=== PATIENT | male | born 1995 | race Caucasian/White ===

== ENCOUNTER 2021-07-18 10:37 | Emergency (ER) | payer OTHER, SELFPAY ==
--- OUTSIDE RECORDS SUMMARY | 2021-07-18 10:41 | XMS REPORT | Continuity of Care Document ---
:1995 Author Organization [facility] Address [address] [place] [address] [address]. [address]es [address] [place] [address] Care Team Providers Name Role Phone Rashard MCCLAIN, K.H. Attending Clinician Horacio WETZEL Attending Clinician Unavailable Bhupendra Huizar Attending Clinician Payers Payer Name Policy Type Policy Number Effective Date Expiration Date S fauzia [employer]ERCIAL [id number] 2015 NON-CONTRACT 00:00:00 GENERIC Problems Condition Condition Condition Status Onset Resolution Last Treating Co mments Source Name Details Category Date Date Treatment Clinician Date No known No known Disease Unive rs active active ity of problems problems [facility] Allergies, Adverse Reactions, Alerts Allergy Allergy Status Severity Reaction(s) Onset Inactive Treating Comm ents Source Name Type Date Date Clinician NO KNOWN Drug Active Univers ALLERGIE Class ity of [facility] Social History Social Habit Start Date Stop Date Quantity Comments Source Sex Assigned At [facility] Exposure to Not sure [facility] SARS-CoV-2 (event) Medica l Branch Tobacco use and 2020-04-19 2020-04-19 Former user [facility] exposure 00:00:00 00:00:00 [facility] Smoking Status Start Date Stop Date Source Former smoker 2020-04-19 00:00:00 2020-04-19 00:00:00 [facility] Unknown if ever smoked [facility] Medications Ordered Filled Start Stop Current Ordering Indication Dosage Frequency Signature Comments Components Source Medication Medication Date Date Medication? Clinician (SIG) Name Name aspirin 325 2019-06 Yes 325mg Take 325 U nivers mg tablet 0-29 mg by ity of 16:04: mouth [place] 30 daily. Medical Branch aspirin 325 2019-06 Yes 325mg Take 325 U nivers mg tablet 0-29 mg by ity of 16:04: mouth [place] 30 daily. Medical Branch aspirin 325 2019-06 Yes 325mg Take 325 U nivers mg tablet 0-29 mg by ity of 16:04: mouth [place] 30 daily. Medical Branch acetaminoph 2019-06- No Take by U nivers en 0-29 10-29 mouth ity of (TYLENOL) 16:04[place] 00[place]00 [place] 6 [place] 325 mg 23 :00 (six) Medical tablet hours as Branch needed. acetaminoph 2019-06- No Take by U nivers en 0-29 10-29 mouth ity of (TYLENOL) 16:04: 00:00 [place] 6 [place] 325 mg 23 :00 (six) Medical tablet hours as Branch needed. acetaminoph 2019-06- No Take by U nivers en 0-29 10-29 mouth ity of (TYLENOL) 16:04: 00:00 [place] 6 [place] 325 mg 23 :00 (six) Medical tablet hours as Branch needed. buprenorphi 2019-[address] 8 mg Univers ne-naloxone 0-29 under the ity of (SUBOXONE) 16:03: tongue 3 [place] as 8-2 mg 40 (three) Medical sublingual times Branch film daily. buprenorphi 2019-[address] 8 mg Univers ne-naloxone 0-29 under the ity of (SUBOXONE) 16:03: tongue 3 [place] 8-2 mg 40 (three) Medical sublingual times Branch film daily. buprenorphi 2019-[address] 8 mg Univers ne-naloxone 0-29 under the ity of (SUBOXONE) 16:03: tongue 3 [place] 8-2 mg 40 (three) Medical sublingual times Branch film daily. acetaminoph Yes Take by Un brandee en 8-25 mouth ity of (TYLENOL) 00:46: every 6 [place] 325 mg 07 (six) Medical tablet hours as Branch needed. ibuprofen Yes 800mg Take 1 Tab U nivers (MOTRIN) 8-24 by mouth 3 ity o f 800 mg 00:00: (three) [place] tablet 00 times Medical daily with Branch meals. traMADOL Yes 50mg Take 1 Tab Uni vers (ULTRAM) 50 8-24 by mouth ity of mg tablet 00:00: every 6 [place] 00 (six) Medical hours as Branch needed for Pain (scale 4-6). ibuprofen 2020- No 800mg Take 1 Tab Univers (MOTRIN) 8- 10-29 by mouth 3 ity of 800 mg 00:00: 00:00 (three) [place] tablet 00 :00 times Medical daily with Branch meals. traMADOL 2020- No 50mg Take 1 Tab Un brandee (ULTRAM) 50 8- 10- by mouth ity of mg tablet 00:00: 00:00 every 6 [place] 00 :00 (six) Medical hours as Branch needed for Pain (scale 4-6). ibuprofen 2020- No 800mg Take 1 Tab Univers (MOTRIN) 8- 10- by mouth 3 ity of 800 mg 00:00: 00:00 (three) [place] tablet 00 :00 times Medical daily with Branch meals. traMADOL 2020- No 50mg Take 1 Tab Un brandee (ULTRAM) 50 8- 10- by mouth ity of mg tablet 00:00: 00:00 every 6 [place] 00 :00 (six) Medical hours as Branch needed for Pain (scale 4-6). ibuprofen 2020- No 800mg Take 1 Tab Univers (MOTRIN) 8- 10- by mouth 3 ity of 800 mg 00:00: 00:00 (three) [place] tablet 00 :00 times Medical daily with Branch meals. traMADOL 2019- No 50mg Take 1 Tab Un brandee (ULTRAM) 50 8- 10- by mouth ity of mg tablet 00:00: 00:00 every 6 [place] 00 :00 (six) Medical hours as Branch needed for Pain (scale 4-6). Vital Signs Vital Name Observation Time Observation Value Comments Source Systolic blood 2020-04-19 16:05:00 119 mm[Hg] Univer sity of pressure [facility] [place] [facility] Diastolic blood 2020-04-19 16:05:00 82 mm[Hg] Unive rsity [facility] Heart rate 2020-04-19 15:58:00 89 /min [facility] Respiratory rate 2020-04-19 15:58:00 19 /min [facility] height 2020-04-19 15:58:00 182.9 cm [facility] Body weight 2020-04-19 15:58:00 84.641 kg Universi ty of [facility] [place] [facility] BMI 2020-04-19 15:58:00 25.31 kg/m2 Universi ty of [facility] [place] [facility] Oxygen saturation in 2020-04-19 15:58:00 100 /min [facility] Arterial blood by [facility] Pulse oximetry Branch Systolic blood 2020-04-17 01:57:00 135 mm[Hg] Univer sity of pressure [facility] [place] [facility] Diastolic blood 2020-04-17 01:57:00 84 mm[Hg] Unive rsity of [facility] Heart rate 2020-04-17 01:57:00 76 /min Universi ty of [facility] Body temperature 2020-04-17 01:57:00 36.78 Karyn Univ ersity of [facility] Respiratory rate 2020-04-17 01:57:00 18 /min Univ ersity of [facility] [place] [facility] Body weight 2020-04-17 01:57:00 81.647 kg Universi ty of [facility] [place] [facility] BMI 2020-04-17 01:57:00 24.41 kg/m2 Universi ty of [facility] Procedures Procedure Date / Time Performed Performing Clinician [facility] e NOTICE OF PRIVACY 2020-04-17 01:50:02 [facility] Branch CONSENT/REFUSAL FOR 2020-04-17 01:49:07 [facility] AND Name Medical Branch TREATMENT Encounters Start End Encounter Admission Attending Care Care Encounter Source Date/Time Date/Time Type Type Clinicians Facility Department ID 2020-04-27 2020-04-27 Outpatient [facility] [id number] Univers 11:00:00 11:00:00 ity of [facility] [place] [facility] 2020-04-27 2020-04-27 Outpatient R [facility] [id number] Univers 11:00:00 11:00:00 ity of [facility] 2020-04-19 2020-04-19 Outpatient [facility] [id number] Univers 12:15:00 12:15:00 [id number] ity [facility] 2020-04-19 2020-04-19 Office Rashard [facility] [id number] Univers 10:22:53 11:52:35 Visit Denita Jones [id number] ity [facility] [id number] [facility] [id number] Il dical nal 059 Branch [facility] 2020-04-19 2020-04-19 Outpatient R RASHARD [facility] [id number] Univers 10:30:00 10:30:00 SENDIL ity [facility] 2020-04-16 2020-04-16 Emergency Andrew [facility] [id number] Univers 20:59:00 22:20:00 Emily Jones [id number] i ty [facility] [id number] [facility] [id number] [facility] 084 Branch 2020-04-16 2020-04-16 Emergency X [facility] ERT [id number] Univers 20:44:00 20:44:00 ity [facility] Results This patient has no known results.
--- NOTE | 2021-07-18 14:31 | RAD REPORT ---
EXAM DESCRIPTION: USExtrem Venous W Compress Bil07/18/2021 2:18 pm CLINICAL HISTORY: Leg swelling COMPARISON: none FINDINGS: The common femoral, superficial femoral, popliteal and posterior tibial veins bilaterally are compressible and demonstrate augmentation. Doppler demonstrates good flow. IMPRESSION: No evidence of deep venous thrombosis involving either lower extremity.
--- NOTE | 2021-07-18 14:34 | RAD REPORT ---
EXAM DESCRIPTION: US - UPPER EXTREMITY VENOUS UNILATE - 07/18/2021 2:20 pm CLINICAL HISTORY: Left arm pain COMPARISON: None. FINDINGS: Left internal jugular vein, left subclavian vein, left axillary vein, left brachial vein, left cephalic and left basilic, veins demonstrate phasic signal. The veins are compressible. Doppler demonstrates good flow. . IMPRESSION: No sonographic evidence of thrombus involving the left upper extremity veins.
--- NOTE | 2021-07-18 15:16 | EDPHYS ---
Physician Documentation [facility] Name: Larry Donato Age: 26 yrs Sex: Male : 1995 Arrival Date: 07/18/2021 Time: 10:40 Bed 10 Private MD: ED Physician Laci Rosenbaum HPI: 07/18 12:45 This 26 yrs old Male presents to ER via Ambulatory with complaints of possible blood cp clot. 12:45 The patient presents with pain. cp 12:45 The complaints affect the left lower leg behind knee and intermittent right lower leg. cp Context: resulted from an unknown cause, the patient can fully bear weight, the patient is able to ambulate, without difficulty. Onset: The symptoms/episode began/occurred 4 month(s) ago. Associated signs and symptoms: Pertinent positives: calf tenderness, left arm pain. Patient also c/o that left hand seems to become pale and discolored with increased activity, intermittent numbness. Historical: - Allergies: 11:08 No Known Allergies; ic1 - Immunization history:: Adult Immunizations up to date. - Social history:: Smoking status: Patient/guardian denies using tobacco, Stopped _ months ago 1. ROS: 12:50 MS/extremity: Positive for pain, tenderness, of the left arm, right leg and left leg, cp Negative for injury or acute deformity, decreased range of motion, paresthesias. 12:50 Constitutional: Negative for body aches, chills, fever, poor PO intake. cp 12:50 Cardiovascular: Negative for chest pain. 12:50 Respiratory: Negative for cough, shortness of breath, wheezing. 12:50 Abdomen/GI: Negative for abdominal pain, nausea, vomiting, and diarrhea. Exam: 12:55 Constitutional: The patient appears in no acute distress, alert, awake, cp non-diaphoretic, non-toxic, well developed, well nourished. 12:55 Head/Face: Normocephalic, atraumatic. cp 12:55 Eyes: Periorbital structures: appear normal, Conjunctiva: normal, no exudate, no injection, Sclera: no appreciated abnormality, Lids and lashes: appear normal, bilaterally. 12:55 ENT: External ear(s): are unremarkable, Nose: is normal, Mouth: Lips: moist, Oral mucosa: moist, Posterior pharynx: Airway: no evidence of obstruction, patent. 12:55 Neck: ROM/movement: is normal, is supple, without pain, no range of motions limitations. 12:55 Chest/axilla: Inspection: normal. 12:55 Cardiovascular: Rate: normal, Rhythm: regular, Heart sounds: murmur, not appreciated, Edema: is not appreciated, JVD: is not appreciated. 12:55 Respiratory: the patient does not display signs of respiratory distress, Respirations: normal, Breath sounds: are clear throughout, no decreased breath sounds, no stridor, no wheezing. 12:55 Abdomen/GI: Exam negative for discomfort, distension, guarding, Inspection: abdomen appears normal. 12:55 Back: pain, is absent, ROM is normal. 12:55 Musculoskeletal/extremity: Exam is negative for decreased range of motion, deformity, ecchymosis, edema, injury, Pulses: noted to be 2+ in the right radial artery, right dorsalis pedis artery, left radial artery and left dorsalis pedis artery, DVT Exam: tenderness, that is mild, of the left leg, of the left calf and left popliteal area. 12:55 Skin: cellulitis, is not appreciated, no rash present. Vital Signs: 11:06 BP 116 / 68; Pulse 97; Resp 16; Temp 98.7; Pulse Ox 99% on R/A; ic1 15:23 BP 121 / 75; Pulse 59; Resp 18; Pulse Ox 99% on R/A; ic1 MDM: 12:27 Patient medically screened. cp 14:00 Differential diagnosis: DVT, thoracic outlet syndrome, peripheral neuropathy. cp 15:15 Data reviewed: vital signs, nurses notes, radiologic studies, ultrasound. cp 15:15 Counseling: I had a detailed discussion with the patient and/or guardian regarding: the cp historical points, exam findings, and any diagnostic results supporting the discharge/admit diagnosis, radiology results, the need for outpatient follow up, for definitive care, a orthopedic surgeon, to return to the emergency department if symptoms worsen or persist or if there are any questions or concerns that arise at home. ED course: VSS. Discussed negative US results for DVT and recommendation to f/u with ortho for evaluation. 07/18 12:44 Order name: UPPER EXTREMITY VENOUS UNILATE; Complete Time: 14:56 EDMS 07/18 12:47 Order name: US Extremity Venous W Compression [place]; Complete Time: 14:56 cp 07/18 14:57 Interpretation: Report reviewed. cp Administered Medications: No medications were administered Disposition: 15:30 Chart complete. cp 17:33 Co-signature as Attending Physician, Laci Rosenbaum MD I agree with the assessment and kdr plan of care. Disposition Summary: 07/18/21 15:15 Discharge Ordered Location: Home cp Problem: new cp Symptoms: are unchanged cp Condition: Stable cp Diagnosis - Pain in arm, unspecified cp - Pain in leg, unspecified cp Followup: cp - With: Andrews Hennessy MD - When: 1 week - Reason: Recheck today's complaints Discharge Instructions: - Discharge Summary Sheet cp - Musculoskeletal Pain cp Forms: - Medication Reconciliation Form cp - Thank You Letter cp - Antibiotic Education cp - Prescription Opioid Use cp Prescriptions: - Ibuprofen 800 mg Oral Tablet - take 1 tablet by ORAL route every 8 hours As needed take with food; 30 tablet; cp Refills: 0, Product Selection Permitted Signatures: Dispatcher [employer] EDMS Laci Rosenbaum MD MD kdr Sunny Finley, IBRAHIMA PA cp Janette Kiran, RN RN ic1 Corrections: (The following items were deleted from the chart) 12:44 12:37 Extremity Venous Uni Ltd+[email or web address].RAD.[email or web address] ordered. EDMS EDMS 12:51 12:37 Extremity Venous Uni Ltd+[email or web address].RAD.BRZ ordered. EDMS EDMS
--- NOTE | 2021-07-18 15:16 | ER ---
Nurse's Notes [facility] Name: Larry Donato Age: 26 yrs Sex: Male : 1995 Arrival Date: 07/18/2021 Time: 10:40 Bed 10 Private MD: Diagnosis: Pain in arm, unspecified;Pain in leg, unspecified Presentation: 07/18 11:06 Chief complaint: Patient states: Pt c/o R calf pain and L arm pain with numbness and ic1 tingling x 4 months. "I feel like I almost pulled my hamstring". Denies recent trauma. Coronavirus screen: Vaccine status: Patient reports being unvaccinated. Ebola Screen: No symptoms or risks identified at this time. Initial Sepsis Screen: Does the patient meet any 2 criteria? No. Patient's initial sepsis screen is negative. Does the patient have a suspected source of infection? No. Patient's initial sepsis screen is negative. Risk Assessment: Do you want to hurt yourself or someone else? Patient reports no desire to harm self or others. Onset of symptoms is unknown. 11:06 Method Of Arrival: Ambulatory ic1 11:06 Acuity: CLAIR 4 ic1 Triage Assessment: 11:08 General: Appears in no apparent distress. Behavior is calm, cooperative. Pain: ic1 Complains of pain in right calf. Historical: - Allergies: 11:08 No Known Allergies; ic1 - Immunization history:: Adult Immunizations up to date. - Social history:: Smoking status: Patient/guardian denies using tobacco, Stopped _ months ago 1. Screenin:39 Abuse screen: Denies threats or abuse. Denies injuries from another. Nutritional ic1 screening: No deficits noted. Tuberculosis screening: No symptoms or risk factors identified. Fall Risk None identified. Assessment: 13:39 Reassessment: Patient appears in no apparent distress at this time. Patient and/or ic1 family updated on plan of care and expected duration. Pain level reassessed. Patient is alert, oriented x 3, equal unlabored respirations, skin warm/dry/pink. Vital Signs: 11:06 BP 116 / 68; Pulse 97; Resp 16; Temp 98.7; Pulse Ox 99% on R/A; ic1 15:23 BP 121 / 75; Pulse 59; Resp 18; Pulse Ox 99% on R/A; ic1 ED Course: 10:40 Patient arrived in ED. am2 11:08 Triage completed. ic1 11:08 Arm band placed on left wrist. ic1 12:19 Sunny Finley PA is PHCP. cp 12:19 Laci Rosenbaum MD is Attending Physician. cp 13:39 Patient has correct armband on for positive identification. ic1 14:18 UPPER EXTREMITY VENOUS UNILATE In Process Unspecified. EDMS 14:18 US Extremity Venous W Compression [place] In Process Unspecified. EDMS 15:15 Andrews Hennessy MD is Referral Physician. cp Administered Medications: No medications were administered Outcome: 15:15 Discharge ordered by MD. cp 15:20 Discharged to home ambulatory. ic1 15:20 Condition: stable 15:20 Discharge instructions given to patient, Instructed on discharge instructions, follow up and referral plans. Demonstrated understanding of instructions, follow-up care, medications, Prescriptions given X 1. 15:24 Patient left the ED. ic1 Signatures: Dispatcher [employer] EDMS Sunny Finley PA PA cp Gregoria Spring am2 Janette Kiran, RN RN ic1
[2021-07-18 15:29] VITALS: TEMP 98.7; O2SAT 99
[2021-07-18 15:30] VITALS: BP 121/75
== END 2021-07-18 15:24 | disposition home or self-care (01) ==
LOC: ER 10:37
DX: M79.662 Pain in left lower leg (principal); M79.661 Pain in right lower leg; M79.602 Pain in left arm
CPT/HCPCS: 93970; 93971; 99283

== ENCOUNTER 2021-08-22 21:04 | Emergency (ER) | payer SELFPAY ==
--- OUTSIDE RECORDS SUMMARY | 2021-08-22 21:08 | XMS REPORT | Continuity of Care Document ---
:[address] [facility] t Address [address] [place] [address] Dr. Montes De [address] [place] [address] Care Team Providers Name Role Phone Rashard MCCLAIN, K.H. Attending Clinician Horacio WETZEL Attending Clinician Unavailable Bhupendra Huizar Attending Clinician Payers Payer Name Policy Type Policy Number Effective Date Expiration Date S Global Weather [id number] 2015 NON-CONTRACT 00:00:00 GENERIC Problems Condition Condition Condition Status Onset Resolution Last Treating Co mments Source Name Details Category Date Date Treatment Clinician Date No known No known Disease Unive rs active active ity of problems problems [facility] Allergies, Adverse Reactions, Alerts Allergy Allergy Status Severity Reaction(s) Onset Inactive Treating Comm ents Source Name Type Date Date Clinician NO KNOWN Drug Active Univers ALLERGIE Class ity of [facility] Social History Social Habit Start Date Stop Date Quantity Comments Source Sex Assigned At [facility] Exposure to Not sure [facility] SARS-CoV-2 (event) Medica l Branch Tobacco use and 2020-04-19 2020-04-19 Former user [facility] exposure 00:00:00 00:00:00 [facility] Smoking Status Start Date Stop Date Source Former smoker 2020-04-19 00:00:00 2020-04-19 00:00:00 [facility] Unknown if ever smoked [facility] Medications Ordered Filled Start Stop Current Ordering [...] mouth [place] 30 daily. Medical Branch acetaminoph 2019-06 2020- No Take by U nivers en 0-29 [...] No 800mg Take 1 Tab Univers (MOTRIN) 804-19 by mouth 3 ity of 800 mg 00:00: 00:00 (three) [place] tablet 00 :00 times Medical daily with Branch meals. traMADOL 2020- No 50mg Take 1 Tab Un brandee (ULTRAM) 50 804-19 by mouth ity of mg tablet 00:00: 00:00 [place] 6 [place] 00 [place] (six) Medical hours as Branch needed for Pain (scale 4-6). ibuprofen 2020- No 800mg Take 1 Tab Univers (MOTRIN) 02-12 by mouth 3 ity of 800 mg 00:00: 00:00 (three) [place] tablet 00 :00 times Medical daily with Branch meals. traMADOL 2020- No 50mg Take 1 Tab Un brandee (ULTRAM) 50 02-12 by mouth ity of mg tablet 00:00: 00:00 [place] (six) Medical hours as Branch needed for Pain (scale 4-6). ibuprofen 2020- No 800mg Take 1 Tab Univers (MOTRIN) 02-12 by mouth 3 ity of 800 mg 00:00: 00:00 (three) [place] tablet 00 :00 times Medical daily with Branch meals. traMADOL 2019- No 50mg Take 1 Tab Un brandee (ULTRAM) 50 02-12 by mouth ity of mg tablet 00:00: 00:00 [place] 6 [place] (six) Medical hours as Branch needed for Pain (scale 4-6). Vital Signs Vital Name Observation Time Observation Value Comments Source Systolic blood 2020-04-19 16:05:00 119 mm[Hg] Univer sity of pressure [facility] Diastolic blood 2020-04-19 16:05:00 82 mm[Hg] Unive rsity of [facility] Heart rate 2020-04-19 15:58:00 89 [facility] Respiratory rate 2020-04-19 15:58:00 19 /min Univ ersity of [facility] Body height 2020-04-19 15:58:00 182.9 cm Universi ty of [facility] Body weight 2020-04-19 15:58:00 84.641 kg Universi ty of [facility] BMI 2020-04-19 15:58:00 25.31 kg/m2 Universi ty [facility] Oxygen saturation in 2020-04-19 15:58:00 100 /min [facility] Arterial blood by [facility] Pulse oximetry Branch Systolic blood 2020-04-17 01:57:00 135 mm[Hg] Univer sity of pressure [facility] Diastolic blood 2020-04-17 01:57:00 84 mm[Hg] Unive rsity of pressure [facility] Heart rate 2020-04-17 01:57:00 76 /min Universi ty of [facility] Body temperature 2020-04-17 01:57:00 36.78 K[facility] 2020-04-17 01:57:00 18 /min [facility] Body weight 2020-04-17 01:57:00 81.647 kg Universi ty [facility] BMI 2020-04-17 01:57:00 24.41 kg/m2 Universi ty [facility] Procedures Procedure Date / Time Performed Performing Clinician Sour e NOTICE OF PRIVACY 2020-04-17 01:50:02 Doctor Unassigned, [facility] Branch CONSENT/REFUSAL FOR 2020-04-17 01:49:07 Doctor Unassigned, No [facility] AND Name Medical Branch TREATMENT Encounters Start End Encounter Admission Attending Care Care Encounter Source Date/Time Date/Time Type Type Clinicians Facility Department ID 2020-04-27 2020-04-27 Outpatient [facility] [id number] Univers 11:00:00 11:00:00 ity of [facility] 2020-04-27 2020-04-27 Outpatient R [facility] [id number] Univers 11:00:00 11:00:00 ity of [facility] 2020-04-19 2020-04-19 Outpatient [facility] [id number] Univers 12:15:00 12:15:00 [id number] [facility] 2020-04-19 2020-04-19 Office Rashard [facility] [id number] Univers 10:22:53 11:52:35 Visit Denita GavinOnel Jones [id number] ity [facility] [id number] [facility] [id number] Mn dical nal 059 [facility] 2020-04-19 2020-04-19 Outpatient R RASHARD, [facility] [id number] Univers 10:30:00 10:30:00 SENDIL ity [facility] 2020-04-16 2020-04-[address] [facility] [id number] Univers 20:59:00 22:20:00 Emily Connorton [id number] i ty [facility] [id number] Yael monson [facility] [id number] [facility] 084 [place] 2020-04-16 2020-04-16 Emergency X [facility] ERT [id number] Univers 20:44:00 20:44:00 [facility] Results Test Description Test Time Test Comments Results Result Comments Source CULTURE, URINE 2021-07-07 SPECIMEN NUMBER: 08:38:50 [id number] CULTURE, URINE SPECIMEN NUMBER: [id number] SPECIMEN COMMENT: URINE SOURCE: URINE REPORT STATUS: FINAL FINAL REPORT: 07/07/2021 <10,000 CFU/ML UROGENITAL CHANCE PRESENT NO COMMON PATHOGENS UNLESS OTHERWISE INDICATED, ALL TESTING PERFORMED [facility] [address] [place] [address] MACHINE BOBBIN WINDER: MALCOLM GOMEZ M.D. CLIA NUMBER [id number] [place]. [id number]
[2021-08-22 22:46] LABS: Absolute Lymphocytes (CBC) 1.6 K/uL (0.7-4.9); Hematocrit 36.7 % (39.6-49.0); Lymphocytes % 33.4 % (15.3-44.8); MPV 7.7 fL (7.6-11.3); RBC Red Blood Cell Count 4.13 M/uL (4.33-5.43)
[2021-08-22 22:53] LABS: Protime INR 1.07
[2021-08-22 23:08] LABS: ALT/SGPT 16 U/L (12-78); AST/SGOT 10 U/L (15-37); Alkaline Phosphatase 73 U/L (45-117); BUN Blood Urea Nitrogen 14 mg/dL (7-18); Bicarbonate 30 mmol/L (21-32); Bilirubin Direct 0.1 mg/dL (0-0.2); Bilirubin Total 0.5 mg/dL (0.2-1.0); Glucose Level 95 mg/dL (74-106); Magnesium 2.2 mg/dL (1.8-2.4); NT PRO-BNP 45 pg/mL (<125); Potassium 3.9 mmol/L (3.5-5.1); Protein, Total 7.2 g/dL (6.4-8.2); Sodium Level 140 mmol/L (136-145)
[2021-08-22 23:09] LABS: Troponin High Sensitivity < 3.00 pg/mL (<58.9)
--- NOTE | 2021-08-23 01:28 | EDPHYS ---
Physician Documentation [facility] Name: Larry Donato Age: 26 yrs Sex: Male : 1995 Arrival Date: 08/22/2021 Time: 21:10 Bed 11 Private MD: ED Physician Claudine Malone HPI: 08/22 23:30 This 26 yrs old Male presents to ER via Ambulatory with complaints of Itching, Chest cp Tightness. Historical: - Allergies: 21:20 No Known Allergies; lg3 - Home Meds: 21:20 suboxone 8mg every 8 hours [Active]; lg3 - PMHx: 21:20 None; lg3 - PSHx: 21:20 bilateral hip; lg3 - Immunization history:: Adult Immunizations up to date, Client reports having NOT received the Covid vaccine. - Social history:: Smoking status: Patient/guardian denies using tobacco, Patient/guardian denies using alcohol, street drugs, the patient reports quitting approximately 1 years ago. ROS: 23:35 Constitutional: Negative for body aches, chills, fever, poor PO intake. cp 23:35 Cardiovascular: Positive for chest pain, Negative for edema, palpitations. cp 23:35 Respiratory: Negative for cough, shortness of breath, wheezing. 23:35 Abdomen/GI: Negative for abdominal pain, nausea, vomiting, and diarrhea. cp 23:35 Eyes: Negative for injury, pain, redness, and discharge. cp 23:35 Neck: Negative for pain with movement, pain at rest, stiffness. 23:35 Back: Negative for pain at rest, pain with movement. 23:35 Skin: Positive for of the left upper back, itching. 23:35 Neuro: Negative for altered mental status, headache, weakness. 23:35 All other systems are negative. Exam: 22:10 ECG was reviewed by the Attending Physician. cp 23:50 Constitutional: The patient appears in no acute distress, alert, awake, comfortable, cp non-diaphoretic, non-toxic, well developed, well nourished. 23:50 Head/Face: Normocephalic, atraumatic. cp 23:50 Eyes: Periorbital structures: appear normal, Pupils: equal, round, and reactive to light and accomodation, Extraocular movements: intact throughout, Conjunctiva: normal, no exudate, no injection, Sclera: no appreciated abnormality, Lids and lashes: appear normal, bilaterally. 23:50 ENT: External ear(s): are unremarkable, Nose: is normal, Mouth: Lips: moist, Oral mucosa: pink and intact, moist, Posterior pharynx: Airway: no evidence of obstruction, patent. 23:50 Neck: ROM/movement: is normal, is supple, without pain, no range of motions limitations, no nuchal rigidity. 23:50 Chest/axilla: Inspection: normal, Palpation: is normal, no crepitus, no tenderness. 23:50 Cardiovascular: Rate: normal, Rhythm: regular, Edema: is not appreciated, JVD: is not appreciated. 23:50 Respiratory: the patient does not display signs of respiratory distress, Respirations: normal, no use of accessory muscles, no retractions, labored breathing, is not present, Breath sounds: are clear throughout, no decreased breath sounds, no stridor, no wheezing. 23:50 Abdomen/GI: Inspection: abdomen appears normal, Palpation: abdomen is soft and non-tender, in all quadrants. 23:50 Back: pain, is absent, ROM is normal. 23:50 Skin: cellulitis, is not appreciated, no rash present. 23:50 Neuro: Orientation: to person, place \T\ time. Mentation: is normal, Motor: moves all fours, strength is normal, Sensation: no obvious gross deficits. Vital Signs: 21:13 BP 135 / 93; Pulse 69; Resp 18 S; Temp 98.6(TE); Pulse Ox 99% on R/A; Weight 81.65 kg lg3 (R); Height 6 ft. (182.88 cm) (R); Pain 0/10; 23:10 BP 136 / 88; Pulse 68; Resp 17; Pulse Ox 100% on R/A; st1 23:55 BP 131 / 97 RA; Pulse 67; Resp 16; Pulse Ox 100% on R/A; st1 23:55 BP 125 / 77 LA; Pulse 61; Resp 17; Pulse Ox 100% on R/A; st1 08/23 01:03 BP 130 / 75; Pulse 60; Resp 16; Pulse Ox 100% on R/A; st1 08/22 21:13 Body Mass Index 24.41 (81.65 kg, 182.88 cm) lg3 MDM: 08/22 22:32 Patient medically screened. cp 08/22 22:30 Order name: Basic Metabolic Panel st1 08/22 22:30 Order name: CBC with Diff st1 08/22 22:30 Order name: LFT's; Complete Time: 00:18 st1 08/22 22:30 Order name: Magnesium; Complete Time: 00:18 st1 08/22 22:30 Order name: NT PRO-BNP; Complete Time: 00:18 st1 08/22 22:30 Order name: PT-INR; Complete Time: 00:18 st1 08/22 22:30 Order name: Troponin HS; Complete Time: 00:18 st1 08/22 22:30 Order name: XRAY Chest (1 view) st1 08/22 22:30 Order name: Cardiac monitoring; Complete Time: 22:30 st1 08/22 22:30 Order name: Basic Metabolic Panel; Complete Time: 00:18 EDMS 08/22 22:30 Order name: CBC with Automated Diff; Complete Time: 00:18 EDMS 08/23 00:18 Interpretation: Normal except: RBC 4.13; HGB 12.7; HCT 36.7. cp 08/22 23:53 Order name: CT Head Brain wo Cont cp 08/22 23:53 Order name: D-Dimer cp 08/22 22:30 Order name: EKG - Nurse/Tech; Complete Time: 22:30 st1 08/22 22:30 Order name: IV Saline Lock; Complete Time: 22:30 st08/22 22:30 Order name: Labs collected and sent; Complete Time: 22:30 st08/22 22:30 Order name: O2 Per Protocol; Complete Time: 22:30 st08/22 22:30 Order name: O2 Sat Monitoring; Complete Time: 22:30 st1 08/22 23:06 Order name: Blood Pressure Recheck: bilateral upper extremity; Complete Time: 23:55 cp EC:10 Rate is 57 beats/min. Rhythm is regular. PA interval is normal. QRS interval is normal. cp QT interval is normal. Interpreted by me. Reviewed by me. Administered Medications: No medications were administered Disposition Summary: 08/23/21 01:28 Discharge Ordered Location: Home cp Problem: new cp Symptoms: have improved cp Condition: Stable cp Diagnosis - Chest pain, unspecified cp - Paresthesia of skin cp - Pruritus, unspecified cp Followup: cp - With: Private Physician - When: 2 - 3 days - Reason: Recheck today's complaints Discharge Instructions: - Discharge Summary Sheet cp - Nonspecific Chest Pain, Adult cp - Paresthesia cp - Pruritus cp - Aspirin and Your Heart cp Forms: - Medication Reconciliation Form cp - Thank You Letter cp - Antibiotic Education cp - Prescription Opioid Use cp Prescriptions: - Vistaril 25 mg Oral capsule - take 1 capsule by ORAL route 4 times per day; 30 capsule; Refills: 0, Product cp Selection Permitted - Ibuprofen 800 mg Oral Tablet - take 1 tablet by ORAL route every 8 hours As needed take with food; 30 tablet; cp Refills: 0, Product Selection Permitted Signatures: Dispatcher [employer] EDSunny Huizar PA PA cp Gibson, Lacie, RN RN lg3 Dariela Reyes RN RN st1
--- NOTE | 2021-08-23 01:28 | ER ---
Nurse's Notes [facility] Name: Larry Donato Age: 26 yrs Sex: Male : 1995 Arrival Date: 08/22/2021 Time: 21:10 Bed 11 Private MD: Diagnosis: Chest pain, unspecified;Paresthesia of skin;Pruritus, unspecified Presentation: 08/22 21:13 Chief complaint: Patient states: he knows he is having circulation problems. he was lg3 seen last month because he thought he had a blood clot. thought tonight he was possibly having a stroke. left arm has had an on and off tingling sensation. chest has been having a stinging sensation. hands and feet currently itching. all symptoms have been occurring over the last several months. Coronavirus screen: Client denies travel out of the [place] in the last 14 days. At this time, the client does not indicate any symptoms associated with coronavirus-19. Ebola Screen: No symptoms or risks identified at this time. Onset: The symptoms/episode began/occurred 3 month(s) ago. Anaphylaxis evaluation, no signs or symptoms of anaphylaxis were noted. Initial Sepsis Screen: Does the patient meet any 2 criteria? No. Patient's initial sepsis screen is negative. Does the patient have a suspected source of infection? No. Patient's initial sepsis screen is negative. Risk Assessment: Do you want to hurt yourself or someone else? Patient reports no desire to harm self or others. Onset of symptoms was June 22, 2021. 21:13 Method Of Arrival: Ambulatory lg3 21:13 Acuity: CLAIR 3 lg3 Triage Assessment: 21:20 General: Appears in no apparent distress. comfortable, Behavior is calm, cooperative, lg3 anxious. Pain: Denies pain. EENT: No deficits noted. No signs and/or symptoms were reported regarding the EENT system. Neuro: No deficits noted. Level of Consciousness is awake, alert, obeys commands, Oriented to person, place, time, situation. Cardiovascular: No deficits noted. Denies shortness of breath. Respiratory: No deficits noted. Airway is patent Trachea midline Respiratory effort is even, unlabored, Respiratory pattern is regular, symmetrical. GI: No deficits noted. No signs and/or symptoms were reported involving the gastrointestinal system. Abdomen is flat, non-distended. : No deficits noted. No signs and/or symptoms were reported regarding the genitourinary system. Derm: No deficits noted. No signs and/or symptoms reported regarding the dermatologic system. Skin is intact, is healthy with good turgor, Skin is dry. Musculoskeletal: No deficits noted. No signs and/or symptoms reported regarding the musculoskeletal system. Circulation, motion, and sensation intact. Range of motion: intact in all extremities. Historical: - Allergies: 21:20 No Known Allergies; lg3 - Home Meds: 21:20 suboxone 8mg every 8 hours [Active]; lg3 - PMHx: 21:20 None; lg3 - PSHx: 21:20 bilateral hip; lg3 - Immunization history:: Adult Immunizations up to date, Client reports having NOT received the Covid vaccine. - Social history:: Smoking status: Patient/guardian denies using tobacco, Patient/guardian denies using alcohol, street drugs, the patient reports quitting approximately 1 years ago. Screenin:24 Abuse screen: Denies threats or abuse. Denies injuries from another. Nutritional lg3 screening: No deficits noted. Tuberculosis screening: No symptoms or risk factors identified. Fall Risk None identified. Assessment: 21:24 Respiratory: Airway is patent Trachea midline Respiratory effort is even, unlabored, lg3 Respiratory pattern is regular, symmetrical, Breath sounds are clear bilaterally. Vital Signs: 21:13 BP 135 / 93; Pulse 69; Resp 18 S; Temp 98.6(TE); Pulse Ox 99% on R/A; Weight 81.65 kg lg3 (R); Height 6 ft. (182.88 cm) (R); Pain 0/10; 23:10 BP 136 / 88; Pulse 68; Resp 17; Pulse Ox 100% on R/A; st1 23:55 BP 131 / 97 RA; Pulse 67; Resp 16; Pulse Ox 100% on R/A; st1 23:55 BP 125 / 77 LA; Pulse 61; Resp 17; Pulse Ox 100% on R/A; st1 08/23 01:03 BP 130 / 75; Pulse 60; Resp 16; Pulse Ox 100% on R/A; st1 08/22 21:13 Body Mass Index 24.41 (81.65 kg, 182.88 cm) lg3 ED Course: 08/22 21:10 Patient arrived in ED. jj6 21:20 Triage completed. lg3 21:20 Arm band placed on right wrist. lg3 22:20 Dariela Reyes, RN is Primary Nurse. st1 22:29 Sunny Finley PA is PHCP. cp 22:29 Claudine Malone MD is Attending Physician. cp 22:30 No provider procedures requiring assistance completed. Inserted saline lock: 20 gauge st1 in left antecubital area, using aseptic technique. 22:31 Basic Metabolic Panel Sent. st1 22:31 CBC with Diff Sent. st1 22:31 Troponin HS Sent. st1 22:31 LFT's Sent. st1 22:31 Magnesium Sent. st1 22:31 NT PRO-BNP Sent. st1 22:31 PT-INR Sent. st1 22:31 Troponin HS Sent. st1 22:41 XRAY Chest (1 view) In Process Unspecified. EDMS 23:11 Patient has correct armband on for positive identification. Bed in low position. Call st1 light in reach. Side rails up X 1. telemetry monitor on. Pulse ox on. NIBP on. 03/04 00:31 CT Head Brain wo Cont In Process Unspecified. EDMS 01:39 IV discontinued, intact, bleeding controlled, No redness/swelling at site. Pressure st1 dressing applied. Administered Medications: No medications were administered Outcome: 01:28 Discharge ordered by . cp 01:38 Condition: good st1 01:38 Discharge instructions given to patient, Instructed on discharge instructions, follow up and referral plans. medication usage, Demonstrated understanding of instructions, follow-up care, medications, Prescriptions given X 2. 01:39 Discharged to home ambulatory. st1 01:39 Patient left the ED. st1 Signatures: Dispatcher [employer] EDMS Sunny Finley PA PA cp Gibson, Lacie, RN RN lg3 SherylMartha jj6 Dariela Reyes, RN RN st1
[2021-08-23 05:22] VITALS: O2SAT 100
[2021-08-23 05:25] VITALS: BP 130/75
[2021-08-23 05:26] VITALS: TEMP 98.6
--- NOTE | 2021-08-23 07:35 | RAD REPORT ---
EXAM DESCRIPTION: RAD - Chest Single View - 08/22/2021 10:41 pm CLINICAL HISTORY: CHEST PAIN COMPARISON: No comparisons FINDINGS: Lines: None. Lungs: No evidence of edema or pneumonia. Pleural: No significant pleural effusions or pneumothorax. Cardiac: The heart size is within normal limits. Bones: No acute fractures. Other: IMPRESSION: No acute cardiopulmonary disease.
--- NOTE | 2021-08-23 10:43 | RAD REPORT ---
EXAM DESCRIPTION: CT - Head Brain Wo Cont - 08/23/2021 3:40 am CLINICAL HISTORY: 26 years Male NUMBNESS TECHNIQUE: Multiple axial CT images of the brain were performed followed by sagittal and coronal rec onstructed images. The CT study is performed according to ALARA (as low as reasonably achievable) or ALARA/IMAGE GENTLY, with automatic adjustment of mA and/or kV according to patient size. Performed on: 08/23/2021 at 12:29 AM Comparisons: None. FINDINGS: Brain: There is no evidence of mass, acute mass effect or midline shift. There are no acut e extra-axial fluid collections. There is no evidence of acute intracranial hemorrhage. The cerebra l sulci and ventricles are normal in size and configuration. There are no focal abnormal areas of inc reased or decreased attenuation. Paranasal Sinuses and Mastoids: There is trace mucosal thickening of the paranasal sinuses. The masto id air cells are clear. Orbits: The orbital contents are grossly unremarkable. Bones: No acute osseous abnormalities are identified. Soft Tissues: No focal soft tissue abnormalities are identified. IMPRESSION: No evidence of acute intracranial pathology. Electronically signed by: Joana Bean DO 08/23/2021 12:49 AM RETANNER Due to temporary technical issues with the PACS/Fluency reporting system, reports are being signed by the in house radiologist without review as a courtesy to ensure prompt reporting. The interpreting r adiologist is fully responsible for the content of the report.
--- NOTE | 2021-08-23 11:30 | EKG ---
Test Date: 2021-08-22 Test Time: 21:59:38 Tube Wrapper: MEASUREMENT RESULTS: Intervals: Rate: 57 KS: 158 QRSD: 84 QT: 396 QTc: 385 [place]: P: 63 KS: 158 QRS: 87 T: 68 INTERPRETIVE STATEMENTS: Sinus bradycardia Otherwise normal ECG No previous ECG available for comparison Electronically Signed On 08-23-21 11:28:53 CHIEF DEPUTY SHERIFF by Sahil Huerta
== END 2021-08-23 01:39 | disposition home or self-care (01) ==
LOC: ER 21:04
DX: R07.9 Chest pain, unspecified (principal); R20.2 Paresthesia of skin; L29.9 Pruritus, unspecified
CPT/HCPCS: 36415; 70450; 71045; 80048; 80076; 83735; 83880; 84484; 85025; 85379; 85610; 93005; 99284

== ENCOUNTER 2021-09-17 14:48 | Emergency (ER) | payer SELFPAY ==
--- OUTSIDE RECORDS SUMMARY | 2021-09-17 14:51 | XMS REPORT | Continuity of Care Document ---
:1995 Author Organization [facility] t Address [address] [place] [address] Dr. Montes [address] [place] [address] Care Team Providers Name Role Phone Rashard MCCLAIN, K.H. Attending Clinician Horacio WETZEL Attending Clinician Unavailable Bhupendra Huizar Attending Clinician Payers Payer Name Policy Type Policy Number Effective Date Expiration Date S [employer] [id number] 2015 NON-CONTRACT 00:00:00 GENERIC Problems Condition Condition Condition Status Onset Resolution Last Treating Co mments Source Name Details Category Date Date Treatment Clinician Date No known No known Disease Unive rs active active ity of problems problems [facility] Allergies, Adverse Reactions, Alerts Allergy Allergy Status Severity Reaction(s) Onset Inactive Treating Comm ents Source Name Type Date Date Clinician NO KNOWN Drug Active Univers ALLERGIE Class ity of [facility] Social History Social Habit Start Date Stop Date Quantity Comments Source Sex Assigned At [facility] [place] Exposure to Not sure [facility] SARS-CoV-2 (event) Medica l Branch Tobacco use and 2020-04-19 2020-04-19 Former user [facility] exposure 00:00:00 00:00:00 Medical [place] Smoking Status Start Date Stop Date Source Former smoker 2020-04-19 00:00:00 2020-04-19 00:00:00 [facility] Unknown if ever smoked [facility] Medications Ordered Filled Start Stop Current [...] 16:05:00 119 mm[Hg] Univer sity of pressure [facility] Diastolic blood 2020-04-19 16:05:00 82 mm[Hg] Unive rsity of [facility] Heart rate 2020-04-19 15:58:00 89 /min Universi [facility] Respiratory rate 2020-04-19 15:58:00 19 /min [facility] Body height 2020-04-19 15:58:00 182.9 cm Universi ty of [facility] Body weight 2020-04-19 15:58:00 84.641 kg Universi ty of [facility] BMI 2020-04-19 15:58:00 25.31 kg/m2 Universi ty [facility] Oxygen saturation in 2020-04-19 15:58:00 100 /min [facility] Arterial blood by [facility] Pulse oximetry Branch Systolic blood 2020-04-17 01:57:00 135 mm[Hg] Univer sity of pressure [facility] Diastolic blood 2020-04-17 01:57:00 84 mm[Hg] Unive rsity of [facility] Heart rate 2020-04-17 01:57:00 76 /min Universi ty of [facility] Body temperature 2020-04-17 01:57:00 36.78 [facility] Respiratory rate 2020-04-17 01:57:00 18 /min [facility] Body weight 2020-04-17 01:57:00 81.647 kg Universi ty [facility] BMI 2020-04-17 01:57:00 24.41 kg/m2 Universi ty [facility] Procedures Procedure Date / Time Performed Performing Clinician [facility] e NOTICE OF PRIVACY 2020-04-17 01:50:02 [facility], [facility] CONSENT/REFUSAL FOR 2020-04-17 01:49:07 Doctor [facility]igned, No [facility] DIAGNOSIS AND Name Medical Branch TREATMENT Encounters Start End Encounter Admission Attending Care Care Encounter Source Date/Time Date/Time Type Type Clinicians Facility Department ID 2020-04-27 2020-04-27 Outpatient [facility] [id number] Univers 11:00:00 11:00:00 ity of [facility] 2020-04-27 2020-04-27 Outpatient R [facility] [id number] Univers 11:00:00 11:00:00 ity of [facility] 2020-04-19 2020-04-19 Outpatient [facility] [id number] Univers 12:15:00 12:15:00 [id number] ity [facility] 2020-04-19 2020-04-19 Office Rashard [facility] [id number] Univers 10:22:53 11:52:35 Visit Sendil JalilOnelEllen Robert [id number] ity [facility] [id number] Yael monson [facility] [id number] Wy dical nal 059 [facility] 2020-04-19 2020-04-19 Outpatient R RASHARD [facility] [id number] Univers 10:30:00 10:30:00 [facility] 2020-04-16 2020-04-16 Emergency [facility] [id number] Univers 20:59:00 22:20:00 Emily Monson Robert [id number] i ty [facility] [id number] [facility] [id number] [facility] 084 [place] 2020-04-16 2020-04-16 Emergency X [facility] ERT [id number] Univers 20:44:00 [facility]44[facility] Results Test Description Test Time Test Comments Results Result Comments Source CULTURE, URINE 2021-07-07 SPECIMEN NUMBER: [id number] CULTURE, URINE SPECIMEN NUMBER: [id number] SPECIMEN COMMENT: URINE SOURCE: URINE REPORT STATUS: FINAL FINAL REPORT: 07/07/2021 <10,000 CFU/ML UROGENITAL CHANCE PRESENT NO COMMON PATHOGENS UNLESS OTHERWISE INDICATED, ALL TESTING PERFORMED [facility] [address] [place] [id number] SOFTWARE PROGRAMMER: MALCOLM GOMEZ M.D. CLIA NUMBER [id number] [place] [id number]
--- NOTE | 2021-09-17 16:30 | EDPHYS ---
Physician Documentation [facility] Name: Larry Donato Age: 26 yrs Sex: Male : 1995 Arrival Date: 09/17/2021 Time: 14:52 Bed Waiting Private MD: ED Physician Kaiser Iverson HPI: 09/17 15:56 This 26 yrs old Male presents to ER via Ambulatory with complaints of prominent veins en in hands. 15:56 Onset: The symptoms/episode began/occurred gradually, last month, for 6 years. en Associated signs and symptoms: The patient has no apparent associated signs or symptoms. Modifying factors: The patient symptoms are alleviated by nothing, the patient symptoms are aggravated by appear to be worse after working with hands all day. The patient has not recently seen a physician. 26 yo M with no PMHs presents to ED with multiple concerns. Pt had an elbow injury 6 years ago and reports intermittent prominent veins in hands for several years with occasional redness. No associated pain, swelling, numbness, or weakness. No new trauma. Pt also had a single episode of yellow stools without blood. No abdominal pain. no F/C/N/V. Pt told recep about urinary frequency, but did denied during additional interview. Hx is very difficult to follow, pt has multiple concerns. Historical: - Allergies: 15:16 No Known Allergies; bp - Home Meds: 15:16 suboxone 8mg every 8 hours [Active]; bp - PMHx: 15:16 None; bp - PSHx: 15:16 Bilateral Hip; bp - Immunization history:: Client reports having NOT received the Covid vaccine. - Social history:: Smoking status: Patient denies any tobacco usage or history of. - Family history:: not pertinent. - Hospitalizations: : No recent hospitalization is reported. ROS: 15:56 Constitutional: Negative for fever, chills, and weight loss. en 15:56 Neck: 15:56 Cardiovascular: Negative for chest pain, edema, palpitations. 15:56 Respiratory: Negative for shortness of breath. 15:56 Abdomen/GI: Negative for abdominal pain, nausea and vomiting, nausea, vomiting, and diarrhea, hematemesis, black/tarry stool, rectal bleeding. 15:56 Back: Negative for 15:56 : 15:56 MS/extremity: Negative for swelling, tenderness, prominent veins in hands. 15:56 Skin: Negative for discoloration, erythema. 15:56 Neuro: Negative for numbness, tingling, weakness. 15:56 All other systems are negative. Exam: 15:56 Constitutional: This is a well developed, well nourished patient who is awake, alert, en and in no acute distress. 15:56 Constitutional: The patient appears in no acute distress, alert, awake. 15:56 Head/face: 15:56 Eyes: Conjunctiva: normal. 15:56 ENT: 15:56 Neck: Exam negative for obvious evidence of injury or deformity. 15:56 Chest/axilla: Inspection: normal, Palpation: no acute changes, Axilla: Lymph nodes: 15:56 Chest/axilla: Exam negative for 15:56 Cardiovascular: Rate: normal, Rhythm: regular, Pulses: no pulse deficits are appreciated, Heart sounds: Edema: is not appreciated. 15:56 Respiratory: the patient does not display signs of respiratory distress, Respirations: normal, Breath sounds: are clear throughout. 15:56 Musculoskeletal/extremity: FROM BUE/NIURKA prominent veins in hands without palpable chords. No swelling, deformity, or TTP. 5/5 [employer]. Negative Tinnels, and Phalen's Sign 2+ radial pulses. 15:56 Skin: Appearance: Color: normal in color. 15:56 Neuro: Cranial nerves: grossly normal, Motor: is normal, Sensation: is normal. 15:56 Psych: anxious appearing. Vital Signs: 15:13 BP 144 / 84; Pulse 85; Resp 17; Temp 97.7; Pulse Ox 100% ; Weight 81.65 kg; Height 6 bp ft. (182.88 cm); 15:13 Body Mass Index 24.41 (81.65 kg, 182.88 cm) bp MDM: 15:56 Patient medically screened. en 15:56 Differential diagnosis: prominent superficial veins in hands without e/o thrombosis, en inflammation, infection. Counseling: I had a detailed discussion with the patient and/or guardian regarding: the historical points, exam findings, and any diagnostic results supporting the discharge/admit diagnosis, reassured patient at length regarding concerns of prominent veins in hands. He is NVI. Normal variant in anatomy without pathology. Also discussed yellow stool likely related to diet, but encourage surveillance and f/u. Admission orders: after a detailed discussion of the patient's condition and case, the admit orders are written by me. ED course: Will d/c home with PCP f/u. Administered Medications: No medications were administered Disposition: 22:08 Co-signature as Attending Physician, Kaiser Iverson DO I was immediately available on-site ms3 in the Emergency Department for consultation in the care of the patient.. Disposition Summary: 09/17/21 16:29 Discharge Ordered Location: Home en Problem: chronic en Condition: Stable en Diagnosis - Prominent veins in hand en Followup: en - With: Cedrick Jauregui MD - When: 2 - 3 days - Reason: Forms: - Medication Reconciliation Form en - Thank You Letter en - Antibiotic Education en - Prescription Opioid Use en Signatures: Suresh Blake RN RN Kaiser Pereyra DO DO ms3 Harleen Dee PA PA en Corrections: (The following items were deleted from the chart) 16:32 15:56 Onset: The symptoms/episode began/occurred gradually, last month, en en 16:32 15:56 The patient has not experienced similar symptoms in the past, en en 16:32 15:56 Modifying factors: The patient symptoms are alleviated by nothing, the patient en symptoms are aggravated by nothing, en 16:33 15:56 Musculoskeletal/extremity: FROM BUE/NIURKA prominent veins in hands without palpable en chords. No swelling, deformity, or TTP. 5/5 [employer]. en 16:34 15:56 26 yo M with no PMHs presents to ED with multiple concerns. Pt had an elbow en injury 6 years ago and reports intermittent prominent veins in hands for several years with occasional redness. No associated pain, swelling, numbness, or weakness. No new trauma. Pt also had a single episode of yellow stools without blood. No abdominal pain. no F/C/N/V. Pt told recep about urinary frequency, but did denied during additional interview. . en
--- NOTE | 2021-09-17 16:30 | ER ---
Nurse's Notes [facility] Name: Larry Donato Age: 26 yrs Sex: Male : 1995 Arrival Date: 09/17/2021 Time: 14:52 Bed Waiting Private MD: Diagnosis: Prominent veins in hand Presentation: 09/17 15:13 Chief complaint: Patient states: "I THINK I'VE GOT BAD VEINS IN MY RIGHT ARM. YOU CAN bp SEE THE VEINS AND SOMETIMES IT GETS DARKER THAN THE OTHER. AND MY POOP WAS YELLOW YESTERDAY AND I'M URINATING ALL THE TIME. I THINK THERE'S SOMETHING WRONG WITH MY KIDNEYS OR SOMETHING.". Coronavirus screen: At this time, the client does not indicate any symptoms associated with coronavirus-19. Ebola Screen: No symptoms or risks identified at this time. Initial Sepsis Screen: Does the patient meet any 2 criteria? No. Patient's initial sepsis screen is negative. Does the patient have a suspected source of infection? No. Patient's initial sepsis screen is negative. Risk Assessment: Do you want to hurt yourself or someone else? Patient reports no desire to harm self or others. Onset of symptoms is unknown. 15:13 Method Of Arrival: Ambulatory bp 15:13 Acuity: CLAIR 3 bp Triage Assessment: 15:15 General: Appears in no apparent distress. comfortable, Behavior is cooperative, bp appropriate for age, anxious. Pain: Complains of pain in right hand. EENT: No deficits noted. Neuro: No deficits noted. Cardiovascular: No deficits noted. Respiratory: No deficits noted. GI: No deficits noted. : No signs and/or symptoms were reported regarding the genitourinary system. Derm: No deficits noted. Musculoskeletal: No deficits noted. Historical: - Allergies: 15:16 No Known Allergies; bp - Home Meds: 15:16 suboxone 8mg every 8 hours [Active]; bp - PMHx: 15:16 None; bp - PSHx: 15:16 Bilateral Hip; bp - Immunization history:: Client reports having NOT received the Covid vaccine. - Social history:: Smoking status: Patient denies any tobacco usage or history of. - Family history:: not pertinent. - Hospitalizations: : No recent hospitalization is reported. Screenin:09 Abuse screen: Denies threats or abuse. Denies injuries from another. Nutritional bp screening: No deficits noted. Tuberculosis screening: No symptoms or risk factors identified. Fall Risk None identified. Assessment: 15:15 General: SEE TRIAGE NOTE. bp 17:09 Reassessment: PT D/ C HOME AMBULATORY, DX WITH PROMINENT VEINS. bp Vital Signs: 15:13 BP 144 / 84; Pulse 85; Resp 17; Temp 97.7; Pulse Ox 100% ; Weight 81.65 kg; Height 6 bp ft. (182.88 cm); 15:13 Body Mass Index 24.41 (81.65 kg, 182.88 cm) bp ED Course: 14:52 Patient arrived in ED. ds1 15:15 Triage completed. bp 15:16 Arm band placed on. bp 15:42 Harleen Dee PA is PHCP. en 15:42 Kaiser Iverson DO is Attending Physician. en 16:27 Suresh Blake, RN is Primary Nurse. bp 16:28 Cedrick Jauregui MD is Referral Physician. en 17:09 Patient has correct armband on for positive identification. bp 17:09 No provider procedures requiring assistance completed. Patient did not have IV access bp during this emergency room visit. Administered Medications: No medications were administered Outcome: 16:29 Discharge ordered by MD. en 17:09 Discharged to home ambulatory. bp 17:09 Condition: stable 17:09 Discharge instructions given to patient, Instructed on discharge instructions, follow up and referral plans. Demonstrated understanding of instructions. 17:11 Patient left the ED. bp Signatures: Roshni Soria ds1 Suresh Blake, RN RN bp Harleen Dee PA PA en
[2021-09-17 17:43] VITALS: BP 144/84; TEMP 97.7; O2SAT 100
== END 2021-09-17 17:11 | disposition home or self-care (01) ==
LOC: ER 14:48
DX: I87.8 Other specified disorders of veins (principal)
CPT/HCPCS: 99281